=== PATIENT | female | born 1965 | race Caucasian/White ===

== ENCOUNTER 2018-07-27 11:40 | Emergency (ER) | payer MEDICAID, OTHER ==
[~2018-07-27] VITALS: Ht 177.8 cm; Wt 113.4 kg
[2018-07-27 12:52] LABS: Basophils # (auto) 0 uL; Basophils % (auto) 0.4 % (0.0-2.0); Eosinophils # (auto) 0.4 uL; Eosinophils % (auto) 4.5 % (0.0-7.0); Hematocrit 39.3 % (36.0-46.0); Hemoglobin 12.7 g/dL (12.2-16.2); Lymphocytes # (auto) 1.6 uL; Lymphocytes % (auto) 19.2 % (10.0-50.0); Mean Corpuscular Hemoglobin 29.6 pg (28.0-32.0); Mean Corpuscular Hgb Conc. 32.4 g/dL (32.0-36.0); Mean Corpuscular Volume 91.4 fL (80.0-100.0); Monocytes # (auto) 0.4 uL; Monocytes % (auto) 5.2 % (0.0-12.0); Neutrophils # (auto) 5.8 uL; Neutrophils % (auto) 70.7 % (37.0-80.0); Platelet Count (auto) 241 10^3/uL (140-450); Red Blood Cells 4.29 10^6/uL (4.0-5.20); Red Cell Distribution Width 14.4 % (11.8-14.3); White Blood Cell 8.2 10^3/uL (4.4-10.8)
[2018-07-27 13:20] LABS: Albumin 3.4 g/dL (3.4-5.0); Calcium 9.3 mg/dL (8.5-10.1); Potassium 4.2 mmol/L (3.5-5.1)
[2018-07-27 13:25] LABS: BUN/Creatinine Ratio 14.2; Bilirubin, Total 0.5 mg/dL (0.2-1.0); Total Protein 7.2 g/dL (6.4-8.2)
[2018-07-27 16:20] LABS: Urine Bacteria NONE SEEN /hpf (None Seen); Urine Blood 2+ /uL (Negative); Urine Hyaline Cast FEW /lpf (0 - 2); Urine Mucus FEW (None Seen); Urine WBC 8 /hpf (0 - 5)
[2018-07-27] MEDS: cloNIDine HCL 0.1 MG TAB PO ONE (17:55)
[2018-07-27] MEDS: LABETALOL HCL 5 MG/ML ML 20ML VIAL IV ONE (17:55)
[2018-07-27] MEDS: SODIUM CHLORIDE 0.9% 1,000 ML IV ONE (18:31)
[2018-07-27] MEDS: hydrALAZINE HCL 25 MG TAB PO ONE ×2 (18:44)
[2018-07-27 19:24] VITALS: BP 139/84
== END 2018-07-27 19:48 | disposition home or self-care (01) ==
LOC: ER 11:46
DX: R55 Syncope and collapse (principal); E11.21 Type 2 diabetes mellitus with diabetic nephropathy; I10 Essential (primary) hypertension; N39.0 Urinary tract infection, site not specified; Z79.4 Long term (current) use of insulin; Z86.73 Personal history of transient ischemic attack (TIA), and cerebral infarction without residual deficits
CPT/HCPCS: 36415; 70450; 71046; 80053; 81001; 83036; 83735; 84443; 85025; 93005

== ENCOUNTER 2019-06-28 11:05 | Inpatient (IN) | payer MEDICAID ==
[~2019-06-28] VITALS: Ht 177.8 cm; Wt 92.0 kg
[2019-06-28] MEDS ORDERED: cloNIDine HCL 0.1 MG TAB ONE (11:40)
[2019-06-28] MEDS ORDERED: cloNIDine HCL 0.1 MG TAB PO ONE (11:45)
[2019-06-28] MEDS ORDERED: SODIUM CHLORIDE 0.9% 1,000 ML IVB ONE (13:45)
[2019-06-28 14:07] LABS: Basophils # (auto) 0.1 10 ^3/uL (0-0.2); Basophils % (auto) 0.6 % (0.0-2.0); Eosinophils # (auto) 0 10 ^3/uL (0-0.8); Eosinophils % (auto) 0.2 % (0.0-7.0); Hematocrit 45.9 % (36.0-46.0); Hemoglobin 14.9 g/dL (12.2-16.2); Mean Corpuscular Hemoglobin 28.4 pg (28.0-32.0); Mean Corpuscular Hgb Conc. 32.4 g/dL (32.0-36.0); Mean Corpuscular Volume 87.7 fL (80.0-100.0); Monocytes # (auto) 0.7 10 ^3/uL (0-1.3); Monocytes % (auto) 5.4 % (0.0-12.0); Neutrophils # (auto) 10.7 10 ^3/uL (1.6-8.6); Neutrophils % (auto) 78.8 % (37.0-80.0); Nucleated Red Blood Cells % 0.1 %; Platelet Count (auto) 303 10^3/uL (140-450); Red Blood Cells 5.23 10^6/uL (4.0-5.20); Red Cell Distribution Width 14.4 % (11.8-14.3); White Blood Cell 13.6 10^3/uL (4.4-10.8)
[2019-06-28 14:18] LABS: Calcium 9.3 mg/dL (8.5-10.1); Chloride 104 mmol/L (98-107); Potassium 3.4 mmol/L (3.5-5.1); Sodium 137 mmol/L (136-145)
[2019-06-28 14:21] LABS: Alanine Aminotransferase 24 U/L (13-56); Anion Gap 5 (5-15); Aspartate Aminotransferase 14 U/L (15-37); Blood Urea Nitrogen 30 mg/dL (7-18); Carbon Dioxide 28 mmol/L (21-32); GFR African American 39 mL/min; GFR Non-African American 32 mL/min; Glucose 138 mg/dL (74-106); Magnesium 2.4 mg/dL (1.6-2.6)
[2019-06-28 14:26] LABS: Alkaline Phosphatase 101 U/L (45-117); Bilirubin, Total 0.7 mg/dL (0.2-1.0); Total Protein 8.3 g/dL (6.4-8.2)
[2019-06-28] MEDS ORDERED: METOPROLOL SUCCINATE XL 50 MG TAB PO ONE (17:15)
[2019-06-28] MEDS ORDERED: NITROGLYCERIN 0.4 MG SL TAB SL PRN (17:15)
[2019-06-28] MEDS ORDERED: MORPHINE SULF INJ 2 MG/ML SYRINGE 1ML IV PRN (17:15)
[2019-06-28 17:53] LABS: Urine WBC None Seen /hpf (0 - 5)
[2019-06-28 18:35] LABS: Urine Bacteria NONE SEEN /hpf (None Seen); Urine Blood TRACE /uL (Negative); Urine Specific Gravity 1.013 (1.001-1.035)
[2019-06-28 18:36] LABS: Alcohol, Urine < 3.0 mg/dL (0-5); Amphetamine Screen, Urine NEGATIVE (NEGATIVE); Barbiturate Scree,Urine NEGATIVE (NEGATIVE); Benzodiazephine Screen, Urine NEGATIVE (NEGATIVE); Cannabinoid Screen, Urine NEGATIVE (NEGATIVE); Cocaine Screen, Urine NEGATIVE (NEGATIVE); Opiate Scree,Urine NEGATIVE (NEGATIVE); Phencyclidine Screen, Urine NEGATIVE (NEGATIVE)
[2019-06-28] MEDS: SODIUM CHLORIDE 0.9% 1,000 ML IV SCH (19:45)
--- NOTE | 2019-06-29 04:00 | NUR ---
Telemetry admit from ER MADDY PHILIP admitted to Telemetry unit for hypertensive crisis after SBAR received. Patient oriented to BLANCHE HASTINGS RN primary RN, unit, room, bed, and unit policies regarding patient care and visiting hours. Patient now on continuous telemetry monitoring, tele box # [id number] and telemetry reading on arrival to unit is SR. Patient placed on bedside oxygen, weighed by bedscale and encouraged to call if they need something. All questions and concerns addressed, patient verbalized understanding. Note:
[2019-06-29 05:00] VITALS: BP 134/80
[2019-06-29] MEDS: SODIUM CHLORIDE 0.9% 1,000 ML IV SCH ×2 (05:18→13:11)
[2019-06-29] MEDS ORDERED: LISI-275 PO (06:03)
--- NOTE | 2019-06-29 07:15 | NUR ---
Opening Shift Note Received report from Tabby DEE. Assumed care of patient, awake and alert. No S/S of distress/SOB or pain. Denying having stroke 2 yrs ago, denying that she had seizures before coming here in [facility]. Instructed on POC and to call for assist PRN, will continue to monitor for changes Q1hr and PRN.
[2019-06-29 08:00] VITALS: BP 138/80
[2019-06-29 09:42] VITALS: BP 138/80
[2019-06-29] MEDS: LOSARTAN POTASSIUM 50 MG TAB PO SCH (09:52)
[2019-06-29] MEDS: METOPROLOL SUCCINATE XL 50 MG TAB PO SCH (09:52)
[2019-06-29] MEDS ORDERED: ATORVASTATIN 20 MG TAB PO ONE (12:45)
[2019-06-29] MEDS ORDERED: ASPirin 81 mg TAB PO ONE (12:45)
[2019-06-29 13:00] VITALS: BP 128/86
[2019-06-29 16:37] VITALS: BP 147/100
--- NOTE | 2019-06-29 19:00 | NUR ---
Opening Shift Note Assumed care of patient, awake and alert. No S/S of distress/SOB or pain. Instructed on POC and to call for assist PRN, will continue to monitor for changes Q1hr and PRN.
[2019-06-29] MEDS: ATORVASTATIN 20 MG TAB PO SCH (21:43)
[2019-06-29] MEDS: hydrALAZINE HCL 20 MG/ML VL IV PRN (22:00)
--- NOTE | 2019-06-29 23:55 | NUR ---
STAT EKG: RN performed stat EKG on patient. Patient had a run of V-tach. STAT EKG showed NSR. Hospitalist was shown tele strips and STAT EKG strip. RN to continue to monitor patient. Patient resting in bed asymptomatic with vitals of 134/96 HR 98 RR 18 T 98.1 and 95% pulse ox.
--- NOTE | 2019-06-30 00:55 | NUR ---
Care endorsed to Manish DEE.
--- NOTE | 2019-06-30 00:56 | NUR ---
Received care from Ozzy DEE.
--- NOTE | 2019-06-30 00:59 | NUR ---
Complete linen changed. Patient had urine and bowel on chucks. PM care provided. Patient tolerated well.
[2019-06-30] MEDS: hydrALAZINE HCL 20 MG/ML VL IV PRN ×3 (05:51→23:57)
[2019-06-30 05:53] VITALS: BP_SYST 114; BP_SYST 161; BP_DIAS 107; BP_DIAS 46
[2019-06-30] MEDS: SODIUM CHLORIDE 0.9% 1,000 ML IV SCH (06:35)
[2019-06-30 06:42] LABS: Basophils # (auto) 0.1 10 ^3/uL (0-0.2); Basophils % (auto) 0.5 % (0.0-2.0); Eosinophils # (auto) 0 10 ^3/uL (0-0.8); Eosinophils % (auto) 0.2 % (0.0-7.0); Hematocrit 43.5 % (36.0-46.0); Hemoglobin 14.5 g/dL (12.2-16.2); Lymphocytes # (auto) 1.1 10 ^3/uL (0.4-5.4); Lymphocytes % (auto) 9.2 % (10.0-50.0); Mean Corpuscular Hemoglobin 29.2 pg (28.0-32.0); Mean Corpuscular Hgb Conc. 33.3 g/dL (32.0-36.0); Mean Corpuscular Volume 87.6 fL (80.0-100.0); Monocytes # (auto) 0.6 10 ^3/uL (0-1.3); Monocytes % (auto) 4.8 % (0.0-12.0); Neutrophils # (auto) 10.3 10 ^3/uL (1.6-8.6); Neutrophils % (auto) 85.3 % (37.0-80.0); Nucleated Red Blood Cells % 0.1 %; Platelet Count (auto) 279 10^3/uL (140-450); Red Blood Cells 4.97 10^6/uL (4.0-5.20); Red Cell Distribution Width 14.6 % (11.8-14.3); White Blood Cell 12.1 10^3/uL (4.4-10.8)
--- NOTE | 2019-06-30 07:00 | NUR ---
Endorsed care to day shift RN.
--- NOTE | 2019-06-30 07:00 | NUR ---
Opening Shift Note Received report on the patient. Awake lying in bed. Patient shows no signs of distress at this time. Discussed the plan of care with the patient. Bed in lowest position, side rails up x2, and the call light is within reach. Will continue to monitor.
[2019-06-30 07:01] LABS: Potassium 3.4 mmol/L (3.5-5.1)
[2019-06-30 07:08] LABS: Calcium 9.1 mg/dL (8.5-10.1)
[2019-06-30 07:30] VITALS: BP 161/107
[2019-06-30 09:00] VITALS: BP 147/63
[2019-06-30] MEDS ORDERED: POTASSIUM CHL 20 Meq TABLET PO ONE (10:00)
[2019-06-30] MEDS: ASPirin 81 mg TAB PO SCH (10:38)
[2019-06-30] MEDS: METOPROLOL SUCCINATE XL 50 MG TAB PO SCH (10:39)
[2019-06-30] MEDS: LOSARTAN POTASSIUM 50 MG TAB PO SCH (10:40)
[2019-06-30 13:00] VITALS: BP 140/90
[2019-06-30 16:52] VITALS: BP 160/111
--- NOTE | 2019-06-30 17:37 | NUR ---
Family Family at bedside. Patient wanted to leave AMA, but family told her to stay. Loree is the patient's sister in law and her contact number is . The patient also lives at a board in care. parts counterperson and ticket broker is Penny .
--- NOTE | 2019-06-30 19:06 | NUR ---
Opening Shift Note Assumed care of patient, awake and alert. No S/S of distress/SOB or pain. Instructed on POC and to call for assist PRN, will continue to monitor for changes Q1hr and PRN. Side rails up x2. Bed locked in lowest position. Call light within reach. Family at bedside.
--- NOTE | 2019-06-30 19:45 | NUR ---
Transferred patient to room 203 via hospital bed. Patient tolerated well.
[2019-06-30] MEDS: ATORVASTATIN 20 MG TAB PO SCH (21:25)
[2019-06-30 22:00] VITALS: BP 159/96
[2019-06-30] MEDS ORDERED: METOPROLOL SUCCINATE XL 50 MG TAB PO ONE (22:00)
--- NOTE | 2019-06-30 23:25 | NUR ---
Endorsed care to maintenance technician 2nd shift RN.
--- NOTE | 2019-06-30 23:35 | NUR ---
Report received from LEILA Hammond. Patient rounded, notified of change of care. Patient noted to have periods of confusion and mood swings. Care assumed.
[2019-07-01] VITALS (7 sets, daily range): BP systolic 144–168; BP diastolic 93–107
[2019-07-01 05:42] LABS: Basophils # (auto) 0.1 10 ^3/uL (0-0.2); Basophils % (auto) 0.6 % (0.0-2.0); Eosinophils # (auto) 0.1 10 ^3/uL (0-0.8); Eosinophils % (auto) 0.8 % (0.0-7.0); Hematocrit 41.5 % (36.0-46.0); Lymphocytes # (auto) 2.4 10 ^3/uL (0.4-5.4); Lymphocytes % (auto) 25.2 % (10.0-50.0); Mean Corpuscular Hemoglobin 29.6 pg (28.0-32.0); Mean Corpuscular Hgb Conc. 33.8 g/dL (32.0-36.0); Mean Corpuscular Volume 87.7 fL (80.0-100.0); Monocytes # (auto) 0.9 10 ^3/uL (0-1.3); Monocytes % (auto) 8.9 % (0.0-12.0); Neutrophils # (auto) 6.2 10 ^3/uL (1.6-8.6); Neutrophils % (auto) 64.5 % (37.0-80.0); Nucleated Red Blood Cells % 0.1 %; Platelet Count (auto) 265 10^3/uL (140-450); Red Blood Cells 4.74 10^6/uL (4.0-5.20); Red Cell Distribution Width 14.5 % (11.8-14.3); White Blood Cell 9.7 10^3/uL (4.4-10.8)
[2019-07-01 06:01] LABS: Calcium 9.1 mg/dL (8.5-10.1); Potassium 3.5 mmol/L (3.5-5.1)
[2019-07-01] MEDS: hydrALAZINE HCL 20 MG/ML VL IV PRN (06:01)
[2019-07-01 06:03] LABS: BUN/Creatinine Ratio 19.7
[2019-07-01] MEDS: LOSARTAN POTASSIUM 50 MG TAB PO SCH (08:53)
[2019-07-01] MEDS: ASPirin 81 mg TAB PO SCH (08:53)
[2019-07-01] MEDS ORDERED: amLODIPine BESYLATE 5 MG TAB PO ONE (09:30)
[2019-07-01] MEDS ORDERED: METOPROLOL SUCCINATE XL 50 MG TAB PO ONE (09:45)
[2019-07-01] MEDS ORDERED: METOPROLOL SUCCINATE XL 50 MG TAB PO SCH (10:00)
[2019-07-01] MEDS: SPIRONOLACTONE 25 MG TAB PO SCH (10:16)
--- NOTE | 2019-07-01 10:36 | NUR ---
PT DECLINED P.T. AT THIS TIME. PATIENT AMBULATED YESTERDAY WITH [facility].
[2019-07-01] MEDS ORDERED: ACETAMINOPHEN 325 MG TAB PO PRN (12:00)
--- NOTE | 2019-07-01 12:50 | NUR ---
PATIENT FOUND ON THE FLOOR IN THE BATHROOM. NO ABRASION OR LACERATIONS NOTED. VS : T 98.3 BP 105/58 HR 90 SAT O2 95 % ON ROOM AIR. PATIENT STATED SHE DID NOT FALL ,JUST SLIPPED DOWN ON THE FLOOR WHEN I FEEL. PATIENT ALERT AND ORIENTED TO TIME, PLACE AND PERSON. SPEECH CLEAR AND COHERENT. HAND GRASPS STRONG BILATERALLY . PATIENT ASSISTED BACK TO BED WITH ASSIST OF 3. DR. VIDALES AND CHARGE NURSE (PEYMAN) NOTIFIED. PATIENT DENIED HIT ON HER HEAD OR ANY PAIN AT THIS TIME. EXPLAINED TO PATIENT HOW IMPORTANT TO CALL FOR HELP. BED ALARM ON. CALL LIGHT WITHIN REACH AND UNDERSTAND TO CALL FOR HELP WITH MOVING. Addendum: 07/01/19 at 1430 by TONY KING RN WROG TIME
--- NOTE | 2019-07-01 13:14 | NUR ---
Patient is requesting to shower, Dr. Gibson miguel, patient can shower. Signed: 07/01/19 at 1315 by TONY KING RN
--- NOTE | 2019-07-01 13:50 | NUR ---
PATIENT FOUND ON THE FLOOR IN THE BATHROOM. NO ABRASION OR LACERATIONS NOTED. VS : T 98.3 BP 105/58 HR 90 SAT O2 95 % ON ROOM AIR. PATIENT STATED SHE DID NOT FALL ,JUST SLIPPED DOWN ON THE FLOOR WHEN I FEEL. PATIENT ALERT AND ORIENTED TO TIME, PLACE AND PERSON. SPEECH CLEAR AND COHERENT. HAND GRASPS STRONG BILATERALLY . PATIENT ASSISTED BACK TO BED WITH ASSIST OF 3. DR. VIDALES AND CHARGE NURSE (PEYMAN) NOTIFIED. PATIENT DENIED HIT ON HER HEAD OR ANY PAIN AT THIS TIME. EXPLAINED TO PATIENT HOW IMPORTANT TO CALL FOR HELP. BED ALARM ON. CALL LIGHT WITHIN REACH AND UNDERSTAND TO CALL FOR HELP WITH MOVING.
--- NOTE | 2019-07-01 13:55 | NUR ---
Taylor (MECCA) notified regarding patient fell.
--- NOTE | 2019-07-01 14:00 | NUR ---
Dr. Arreaga made aware of patient fell.
--- NOTE | 2019-07-01 19:30 | NUR ---
opening note pt alert to self and place. respirations are even and nonlabored on room air. bed is in low locked position. call light is within reach.
--- NOTE | 2019-07-01 22:45 | NUR ---
pt resting comfortably in a right lateral position with eyes closed. resp are even and non labored on room air. pt does not show s/s of pain or discomfort at this time. bed is in its lowest locked position, call light is within reach.
[2019-07-01] MEDS: ATORVASTATIN 20 MG TAB PO SCH (22:56)
[2019-07-02 04:30] VITALS: BP 155/54
[2019-07-02] MEDS: hydrALAZINE HCL 20 MG/ML VL IV PRN (06:34)
--- NOTE | 2019-07-02 06:57 | NUR ---
closing note pt watching tv in semi fowlers position. no s/s of pain or discomfort at this time. Pt is A&Ox4. resp are even and non labored on room air. bed in low position, call light within reach.
[2019-07-02 09:00] VITALS: BP 171/90
[2019-07-02] MEDS: ASPirin 81 mg TAB PO SCH (09:26)
[2019-07-02] MEDS: SPIRONOLACTONE 25 MG TAB PO SCH (09:26)
[2019-07-02] MEDS: amLODIPine BESYLATE 5 MG TAB PO SCH (09:27)
[2019-07-02] MEDS: LOSARTAN POTASSIUM 50 MG TAB PO SCH (09:27)
[2019-07-02] MEDS: METOPROLOL SUCCINATE XL 50 MG TAB PO SCH (09:28)
[2019-07-02] MEDS ORDERED: METOPROLOL TARTRATE 1MG/1ML-5ML VIAL IV PRN (10:15)
[2019-07-02 10:26] LABS: BUN/Creatinine Ratio 23.4; Calcium 9.1 mg/dL (8.5-10.1); Magnesium 2.6 mg/dL (1.6-2.6); Potassium 3.5 mmol/L (3.5-5.1)
[2019-07-02 10:44] VITALS: BP 138/90
[2019-07-02 13:00] VITALS: BP 139/89
--- NOTE | 2019-07-02 14:30 | NUR ---
PT REPORTS THAT SHE WALKS FINE AND DOES NOT NEED P.T.
[2019-07-02 17:00] VITALS: BP 124/68
--- NOTE | 2019-07-02 19:35 | NUR ---
opening note pt resting in semi fowlers position watching tv. pt denies any pain or discomfort. respirations are even and nonlabored on room air. bed is in low locked position with call light within reach.
[2019-07-02 21:23] VITALS: BP 130/85
[2019-07-02] MEDS: ATORVASTATIN 20 MG TAB PO SCH (22:00)
--- NOTE | 2019-07-02 22:00 | NUR ---
pt refusing medication, states she "doesn't take that anymore".
--- NOTE | 2019-07-03 01:12 | NUR ---
pt is resting in left lateral position with eyes closed. pt does not show signs and symptoms of pain or discomfort. respirations are even and non labored on room air.
--- NOTE | 2019-07-03 04:34 | NUR ---
pt refused blood draw from lab.
[2019-07-03 05:01] VITALS: BP 136/106
--- NOTE | 2019-07-03 07:12 | NUR ---
closing note pt is A&Ox4. pt is watching tv in semi fowlers position. pt ambulated to bathroom at this time, tolerated well. bed linen changed. pt denies pain or discomfort at this time.
--- NOTE | 2019-07-03 08:15 | NUR ---
Opening Note Assumed care of patient, she is A & O x4, no s/s of distress. Patient is very talkative, and has a hard time following a train of thought at this time. This is baseline for patient. She is comfortable at this time. POC discussed. Education regarding elevated BP discussed. Bed is in lowest, locked position, call light within reach. Will continue to monitor Q1h and PRN.
[2019-07-03 09:00] VITALS: BP 162/111
[2019-07-03 09:33] LABS: Calcium 9.1 mg/dL (8.5-10.1); Magnesium 2.3 mg/dL (1.6-2.6)
[2019-07-03] MEDS: ASPirin 81 mg TAB PO SCH (09:55)
[2019-07-03] MEDS: METOPROLOL SUCCINATE XL 50 MG TAB PO SCH (09:56)
[2019-07-03] MEDS: amLODIPine BESYLATE 5 MG TAB PO SCH (09:56)
[2019-07-03] MEDS ORDERED: LOSARTAN POTASSIUM 50 MG TAB PO SCH (10:00)
[2019-07-03] MEDS ORDERED: SPIRONOLACTONE 25 MG TAB PO SCH (10:00)
--- NOTE | 2019-07-03 10:57 | NUR ---
Dr. Martin at bedside. Will be discharging patient, BP is now 142/89, HR 71, Dr. Martin informed.
[2019-07-03 13:00] VITALS: BP 148/110
== END 2019-07-03 16:36 | disposition home or self-care (01) | DRG 52 ==
LOC: ER 11:05 → EDBD 11:05 → TELE 11:06 → TELE-EAST 06-29 03:40 → TELE-CENTR 06-30 01:00
PROVIDERS: ADMIT Nurse Practitioner Acute Care; ATTEND Internal Medicine
DX: I67.4 Hypertensive encephalopathy (principal); I47.2 Ventricular tachycardia; N17.9 Acute kidney failure, unspecified; E11.21 Type 2 diabetes mellitus with diabetic nephropathy; N18.3 Chronic kidney disease, stage 3 (moderate); I16.1 Hypertensive emergency; S01.21XA Laceration without foreign body of nose, initial encounter; E66.9 Obesity, unspecified; E87.6 Hypokalemia; G40.409 Other generalized epilepsy and epileptic syndromes, not intractable, without status epilepticus; W01.0XXA Fall on same level from slipping, tripping and stumbling without subsequent striking against object, initial encounter; E11.22 Type 2 diabetes mellitus with diabetic chronic kidney disease; I12.9 Hypertensive chronic kidney disease with stage 1 through stage 4 chronic kidney disease, or unspecified chronic kidney disease; Y93.E1 Activity, personal bathing and showering; Y92.89 Other specified places as the place of occurrence of the external cause; Y99.8 Other external cause status; Z91.14 Patient's other noncompliance with medication regimen; Z90.49 Acquired absence of other specified parts of digestive tract; Z90.710 Acquired absence of both cervix and uterus; Z79.899 Other long term (current) drug therapy; I69.328 Other speech and language deficits following cerebral infarction
CPT/HCPCS: 36415; 51702; 70450; 71046; 80048; 80053; 80061; 80307; 81001; 82088; 82962; 83036; 83735; 83880; 84244; 84443; 84484; 85025; 87081; 93005; 93306; 93886; 93975; 96360; 97116; 97163; 97530; G0378